=== PATIENT | male | born 1985 | race Caucasian/White ===

== ENCOUNTER 2022-07-05 22:40 | Inpatient (IN) | payer MEDICAID, SELFPAY ==
[~2022-07-05] VITALS: Ht 182.9 cm; Wt 69.8 kg
[2022-07-06] MEDS ORDERED: ONDANSETRON 4MG 2ML VIAL IV ONE (02:35)
[2022-07-06] MEDS ORDERED: NS 2,310 ML in IV 1 EA IV ONE (02:45)
[2022-07-06] MEDS: MORPHINE 4 MG/ML 1ML VIAL IV PRN ×2 (02:46→03:44)
[2022-07-06 03:13] LABS: BASO # 0.1 10^3/uL (0.0-0.2); BASO % 0.3 % (0.0-1.0); EOS # 0.1 10^3/uL (0.0-0.5); EOS % 0.7 % (0.0-3.0); HEMATOCRIT 36.5 % (42.0-52.0); LYMPH # 1.3 10^3/uL (1.5-5.0); LYMPH % 6.5 % (24.0-44.0); MEAN CORPUSCULAR HEMOGLOBIN 29.7 pg (27.0-33.0); MEAN CORPUSCULAR HGB CONC 32.9 g/dl (32.0-36.5); MEAN CORPUSCULAR VOLUME 90.3 fl (80.0-96.0); MONO # 1.2 10^3/uL (0.0-0.8); MONO % 5.9 % (2.0-8.0); NEUTROPHILS # 16.8 10^3/uL (1.5-8.5); NEUTROPHILS % 85.6 % (36.0-66.0); PLATELET COUNT, AUTOMATED 329 10^3/uL (150-450); RED BLOOD COUNT 4.04 10^6/uL (4.30-6.10); WHITE BLOOD COUNT 19.6 10^3/uL (4.0-10.0)
[2022-07-06] MEDS ORDERED: MEROPENEM INJ 1 GM in IV 1 EA IV ONE (03:15)
[2022-07-06] MEDS ORDERED: ISOVUE-370 76% 100ML VIAL As Ordered ONE (03:24)
[2022-07-06 03:43] LABS: BLOOD UREA NITROGEN 11 MG/DL (9-23); CALCIUM LEVEL 8.2 MG/DL (8.5-10.1); CARBON DIOXIDE LEVEL 29 MMOL/L (20-31); CHLORIDE LEVEL 101 MMOL/L (98-107); CREATININE FOR GFR 0.68 MG/DL (0.70-1.30); GLOMERULAR FILTRATION RATE > 60.0 (>60); GLUCOSE, FASTING 119 MG/DL (60-100); POTASSIUM SERUM 4.1 MMOL/L (3.5-5.1); SODIUM LEVEL 134 MMOL/L (136-145)
[2022-07-06] MEDS ORDERED: MORPHINE 4 MG/ML 1ML VIAL IV PRN (06:00)
[2022-07-06] MEDS ORDERED: MATE ADAPTER IV SCH (06:10)
[2022-07-06] MEDS ORDERED: NS IV SCH (06:10)
[2022-07-06] MEDS ORDERED: VANCOMYCIN HCL IV SCH (06:10)
[2022-07-06] MEDS: NS 1,000 ML IV SCH ×3 (06:10→17:56)
[2022-07-06] MEDS ORDERED: ACETAMINOPHEN TAB 650MG DOSE (2X325MG) PO PRN (06:10)
[2022-07-06] MEDS ORDERED: HOME MED LIST COMPLETE! XX SCH (06:30)
[2022-07-06] MEDS ORDERED: VANCOMYCIN HCL 750 MG, VIAL MATE ADAPTER 1 EACH in D5W 250 ML IV ONE ×2 (06:30→07:30)
[2022-07-06] MEDS ORDERED: CLINDAMYCIN 600 MG in IV 1 EA IV SCH (09:00)
[2022-07-06] MEDS: HYDROMORPHONE HCL 0.5 MG/ 0.5 ML SYRINGE IV PRN ×4 (09:14→23:51)
[2022-07-06] MEDS ORDERED: VANCOMYCIN 1000MG/20ML VIAL As Ordered ONE (11:43)
[2022-07-06] MEDS ORDERED: ACETAMINOPHEN 1000MG 100ML IV BAG As Ordered ONE (12:10)
[2022-07-06] MEDS ORDERED: propofoL 200 MG/20 ML VIAL As Ordered ONE (12:10)
[2022-07-06] MEDS ORDERED: ONDANSETRON 4MG 2ML VIAL As Ordered ONE (12:10)
[2022-07-06] MEDS ORDERED: LIDOCAINE 2% 100MG/5ML SDV (FOR ANES.) As Ordered ONE (12:10)
[2022-07-06] MEDS ORDERED: fentaNYL 100 MCG/2 ML INJECTION As Ordered ONE (12:10)
[2022-07-06] MEDS ORDERED: MIDAZOLAM INJ 2MG/2ML VIAL As Ordered ONE (12:10)
[2022-07-06] MEDS ORDERED: fentaNYL 100 MCG/2 ML INJECTION IV PRN (13:00)
[2022-07-06] MEDS ORDERED: LR 1,000 ML IV SCH (13:00)
[2022-07-06] MEDS ORDERED: ONDANSETRON 4MG 2ML VIAL IV PRN (13:00)
[2022-07-06] MEDS ORDERED: oxyCODONE 5MG TAB PO PRN (13:00)
[2022-07-06] MEDS ORDERED: HYDROMORPHONE HCL 0.5 MG/ 0.5 ML SYRINGE IV PRN (13:00)
[2022-07-06 14:45] VITALS: BP 131/76
[2022-07-06] MEDS ORDERED: PIPERACILLIN/TAZOBACTAM SOD 4.5 GM in D5W MINI-BAG PLUS 50 ML IV SCH (17:00)
[2022-07-06] MEDS: VANCOMYCIN HCL 1,000 MG, VIAL MATE ADAPTER 1 EACH in D5W 250 ML IV SCH ×2 (17:53→23:44)
[2022-07-06 18:36] LABS: HIV 1&2 SCREEN NEGATIVE (NEGATIVE)
[2022-07-06 19:49] LABS: GC DNA AMPLIFICATION NEGATIVE (NEGATIVE)
[2022-07-06 20:00] VITALS: BP 120/64
[2022-07-06] MEDS: PIPERACILLIN/TAZOBACTAM SOD 4.5 GM in D5W MINI-BAG PLUS 50 ML IV SCH (20:15)
[2022-07-06] MEDS: HEPARIN SOD (PORCINE) 5000UNITS/ML 1ML VIAL/SYRINGE SC SCH ×2 (22:00→22:32)
[2022-07-06 23:23] VITALS: BP 114/56
[2022-07-07] MEDS: PIPERACILLIN/TAZOBACTAM SOD 4.5 GM in D5W MINI-BAG PLUS 50 ML IV SCH ×3 (03:08→21:20)
[2022-07-07] MEDS: HYDROMORPHONE HCL 0.5 MG/ 0.5 ML SYRINGE IV PRN ×5 (04:21→20:51)
[2022-07-07] MEDS: HEPARIN SOD (PORCINE) 5000UNITS/ML 1ML VIAL/SYRINGE SC SCH ×3 (04:22→22:00)
[2022-07-07 04:29] VITALS: BP 109/57
[2022-07-07 07:07] LABS: BASO # 0.1 10^3/uL (0.0-0.2); BASO % 0.3 % (0.0-1.0); EOS # 0.1 10^3/uL (0.0-0.5); EOS % 0.3 % (0.0-3.0); HEMATOCRIT 34.1 % (42.0-52.0); HEMOGLOBIN 11.1 g/dl (13.5-17.5); LYMPH # 1.9 10^3/uL (1.5-5.0); LYMPH % 8.7 % (24.0-44.0); MEAN CORPUSCULAR HEMOGLOBIN 29.3 pg (27.0-33.0); MEAN CORPUSCULAR HGB CONC 32.6 g/dl (32.0-36.5); MONO # 1.3 10^3/uL (0.0-0.8); MONO % 6.2 % (2.0-8.0); NEUTROPHILS # 17.8 10^3/uL (1.5-8.5); PLATELET COUNT, AUTOMATED 344 10^3/uL (150-450); RED BLOOD COUNT 3.79 10^6/uL (4.30-6.10); WHITE BLOOD COUNT 21.5 10^3/uL (4.0-10.0)
[2022-07-07 07:29] LABS: VANCOMYCIN LEVEL TROUGH 7.6 UG/ML (10.0-20.0)
[2022-07-07 07:30] LABS: ALBUMIN 2.6 G/DL (3.2-5.2); ALKALINE PHOSPHATASE 106 U/L (46-116); ALT/SGPT 22 U/L (7.0-40); AST/SGOT 18 U/L (<34); BILIRUBIN,TOTAL < 0.2 MG/DL (0.3-1.2); BLOOD UREA NITROGEN 11 MG/DL (9-23); CALCIUM LEVEL 8.5 MG/DL (8.5-10.1); CARBON DIOXIDE LEVEL 32 MMOL/L (20-31); CHLORIDE LEVEL 104 MMOL/L (98-107); CREATININE FOR GFR 0.67 MG/DL (0.70-1.30); GLOMERULAR FILTRATION RATE > 60.0 (>60); GLUCOSE, FASTING 139 MG/DL (60-100); POTASSIUM SERUM 4.8 MMOL/L (3.5-5.1); SODIUM LEVEL 135 MMOL/L (136-145); TOTAL PROTEIN 6.5 G/DL (5.7-8.2)
[2022-07-07] MEDS: VANCOMYCIN HCL 1,000 MG, VIAL MATE ADAPTER 1 EACH in D5W 250 ML IV SCH ×3 (08:44→20:50)
[2022-07-07 10:00] VITALS: BP 107/62
[2022-07-07 14:00] VITALS: BP 115/70
[2022-07-07 20:31] VITALS: BP 121/76
[2022-07-08] MEDS: VANCOMYCIN HCL 1,000 MG, VIAL MATE ADAPTER 1 EACH in D5W 250 ML IV SCH ×3 (03:37→17:27)
[2022-07-08] MEDS: PIPERACILLIN/TAZOBACTAM SOD 4.5 GM in D5W MINI-BAG PLUS 50 ML IV SCH ×2 (04:27→11:52)
[2022-07-08] MEDS: HYDROMORPHONE HCL 0.5 MG/ 0.5 ML SYRINGE IV PRN ×5 (04:31→23:54)
[2022-07-08] MEDS: HEPARIN SOD (PORCINE) 5000UNITS/ML 1ML VIAL/SYRINGE SC SCH (06:00)
[2022-07-08 07:15] LABS: HEMATOCRIT 35.8 % (42.0-52.0); HEMOGLOBIN 11.4 g/dl (13.5-17.5); MEAN CORPUSCULAR HGB CONC 31.8 g/dl (32.0-36.5); MEAN CORPUSCULAR VOLUME 91.1 fl (80.0-96.0); PLATELET COUNT, AUTOMATED 359 10^3/uL (150-450); RED BLOOD COUNT 3.93 10^6/uL (4.30-6.10)
[2022-07-08 07:42] LABS: BLOOD UREA NITROGEN 16 MG/DL (9-23); CARBON DIOXIDE LEVEL 29 MMOL/L (20-31); CHLORIDE LEVEL 103 MMOL/L (98-107); CREATININE FOR GFR 0.71 MG/DL (0.70-1.30); GLOMERULAR FILTRATION RATE > 60.0 (>60); GLUCOSE, FASTING 110 MG/DL (60-100); POTASSIUM SERUM 4.5 MMOL/L (3.5-5.1); SODIUM LEVEL 139 MMOL/L (136-145)
[2022-07-08] MEDS ORDERED: ENOXAPARIN 40MG/0.4ML SYRINGE (J1650 PER 10MG) SC SCH (09:00)
[2022-07-08 09:17] LABS: ATYPICAL LYMPH 2 % (0-5); LYMPHOCYTES 22 % (16-44); METAMYELOCYTES 1 % (0-0); MONOCYTES 6 % (0-5); MYELOCYTES 1 % (0-0); NEUTROPHILS 63 % (28-66)
[2022-07-08 09:18] LABS: PLATELET ESTIMATE NORMAL (NORMAL)
[2022-07-08] MEDS ORDERED: VANCOMYCIN HCL 1,000 MG, VIAL MATE ADAPTER 1 EACH in D5W 250 ML IV ONE (13:00)
[2022-07-08 14:00] VITALS: BP 112/67
[2022-07-08] MEDS ORDERED: ACETAMINOPHEN 500 MG TAB PO ONE (18:20)
[2022-07-08] MEDS ORDERED: HYDROMORPHONE HCL 0.5 MG/ 0.5 ML SYRINGE IV ONE (18:20)
[2022-07-08] MEDS ORDERED: KETOROLAC 30 MG/ML 1ML VIAL IV ONE (18:20)
[2022-07-08] MEDS ORDERED: LIDOCAINE 5% OINT 30GM TUBE TOP STA (19:19)
[2022-07-08] MEDS ORDERED: HYDROmorphone HCL 2MG/ML 1ML VIAL IV ONE (19:20)
[2022-07-08 20:34] VITALS: BP 128/73
[2022-07-08] MEDS: MUPIROCIN 2% OINT 22 GM TUBE TOP SCH (21:52)
[2022-07-09] MEDS: VANCOMYCIN HCL 1,000 MG, VIAL MATE ADAPTER 1 EACH in D5W 250 ML IV SCH ×5 (00:45→23:09)
[2022-07-09 06:00] VITALS: BP 119/74
[2022-07-09 07:31] LABS: HEMATOCRIT 34.2 % (42.0-52.0); HEMOGLOBIN 11.3 g/dl (13.5-17.5); MEAN CORPUSCULAR HEMOGLOBIN 29.6 pg (27.0-33.0); MEAN CORPUSCULAR VOLUME 89.5 fl (80.0-96.0); PLATELET COUNT, AUTOMATED 361 10^3/uL (150-450); RED BLOOD COUNT 3.82 10^6/uL (4.30-6.10); WHITE BLOOD COUNT 14.7 10^3/uL (4.0-10.0)
[2022-07-09 07:52] LABS: BLOOD UREA NITROGEN 17 MG/DL (9-23); CALCIUM LEVEL 7.7 MG/DL (8.5-10.1); CARBON DIOXIDE LEVEL 30 MMOL/L (20-31); CHLORIDE LEVEL 100 MMOL/L (98-107); CREATININE FOR GFR 0.63 MG/DL (0.70-1.30); GLOMERULAR FILTRATION RATE > 60.0 (>60); GLUCOSE, FASTING 123 MG/DL (60-100); POTASSIUM SERUM 4.5 MMOL/L (3.5-5.1); SODIUM LEVEL 135 MMOL/L (136-145)
[2022-07-09 08:08] LABS: HEPATITIS B SURFACE ANTIGEN NEGATIVE (NEGATIVE)
[2022-07-09 09:28] LABS: ATYPICAL LYMPH 4 % (0-5); EOSINOPHILS 2 % (0-3); LYMPHOCYTES 5 % (16-44); METAMYELOCYTES 1 % (0-0); MONOCYTES 10 % (0-5); MYELOCYTES 1 % (0-0); NEUTROPHILS 75 % (28-66); PLATELET ESTIMATE NORMAL (NORMAL)
[2022-07-09 09:29] LABS: ANISOCYTOSIS 1+
[2022-07-09] MEDS: MUPIROCIN 2% OINT 22 GM TUBE TOP SCH ×2 (10:24→20:23)
[2022-07-09] MEDS: ENOXAPARIN 40MG/0.4ML SYRINGE (J1650 PER 10MG) SC SCH (12:16)
[2022-07-09] MEDS: HYDROMORPHONE HCL 0.5 MG/ 0.5 ML SYRINGE IV PRN ×2 (12:17→20:22)
[2022-07-09 14:00] VITALS: BP 120/74
[2022-07-09 21:40] VITALS: BP 117/76
[2022-07-10 05:09] LABS: HEPATITIS B CORE ANTIBODY IGG Negative (Negative)
[2022-07-10] MEDS: VANCOMYCIN HCL 1,000 MG, VIAL MATE ADAPTER 1 EACH in D5W 250 ML IV SCH ×3 (05:14→18:29)
[2022-07-10 06:00] VITALS: BP 111/67
[2022-07-10 06:11] LABS: HEMATOCRIT 36.4 % (42.0-52.0); MEAN CORPUSCULAR HEMOGLOBIN 29.4 pg (27.0-33.0); MEAN CORPUSCULAR VOLUME 89.2 fl (80.0-96.0); PLATELET COUNT, AUTOMATED 376 10^3/uL (150-450); RED BLOOD COUNT 4.08 10^6/uL (4.30-6.10)
[2022-07-10] MEDS: HYDROMORPHONE HCL 0.5 MG/ 0.5 ML SYRINGE IV PRN ×2 (06:25→11:40)
[2022-07-10 06:34] LABS: BLOOD UREA NITROGEN 13 MG/DL (9-23); CALCIUM LEVEL 8.4 MG/DL (8.5-10.1); CARBON DIOXIDE LEVEL 30 MMOL/L (20-31); CHLORIDE LEVEL 99 MMOL/L (98-107); CREATININE FOR GFR 0.68 MG/DL (0.70-1.30); GLOMERULAR FILTRATION RATE > 60.0 (>60); GLUCOSE, FASTING 137 MG/DL (60-100); POTASSIUM SERUM 4.6 MMOL/L (3.5-5.1); SODIUM LEVEL 135 MMOL/L (136-145)
[2022-07-10 07:33] LABS: ATYPICAL LYMPH 2 % (0-5); EOSINOPHILS 4 % (0-3); LYMPHOCYTES 12 % (16-44); METAMYELOCYTES 2 % (0-0); MONOCYTES 9 % (0-5); MYELOCYTES 4 % (0-0); NEUTROPHILS 64 % (28-66); PLATELET CLUMPS SMALL AMT; PLATELET ESTIMATE NORMAL (NORMAL)
[2022-07-10 07:35] LABS: POLYCHROMASIA 1+
[2022-07-10] MEDS: MUPIROCIN 2% OINT 22 GM TUBE TOP SCH ×2 (12:33→19:59)
[2022-07-10] MEDS: ENOXAPARIN 40MG/0.4ML SYRINGE (J1650 PER 10MG) SC SCH (12:34)
[2022-07-10 14:00] VITALS: BP 110/84
[2022-07-10] MEDS ORDERED: traZODone 50 MG TAB PO PRN (15:20)
[2022-07-10] MEDS ORDERED: SENOKOT S TAB PO PRN (15:20)
[2022-07-10] MEDS ORDERED: HYDROMORPHONE HCL 0.5 MG/ 0.5 ML SYRINGE IV PRN (15:20)
[2022-07-10] MEDS ORDERED: MIRALAX *UNIT DOSE* 17GM PACKET PO PRN (15:20)
[2022-07-10] MEDS ORDERED: NALOXONE INJ 0.4MG/1ML VIAL IV PRN (15:20)
[2022-07-10] MEDS ORDERED: MOM 30ML SUSPENSION UDC PO PRN (15:20)
[2022-07-10] MEDS: IBUPROFEN 400MG TAB PO SCH (18:29)
[2022-07-10] MEDS: PERCOCET 5MG/325MG TAB PO PRN (19:59)
[2022-07-10 20:00] VITALS: BP 126/66
[2022-07-11] MEDS: VANCOMYCIN HCL 1,000 MG, VIAL MATE ADAPTER 1 EACH in D5W 250 ML IV SCH ×4 (00:08→18:00)
[2022-07-11 06:00] VITALS: BP 112/64
[2022-07-11] MEDS: PERCOCET 5MG/325MG TAB PO PRN (06:28)
[2022-07-11 06:38] LABS: HEMATOCRIT 36.6 % (42.0-52.0); HEMOGLOBIN 11.9 g/dl (13.5-17.5); MEAN CORPUSCULAR HEMOGLOBIN 29.2 pg (27.0-33.0); MEAN CORPUSCULAR HGB CONC 32.5 g/dl (32.0-36.5); MEAN CORPUSCULAR VOLUME 89.7 fl (80.0-96.0); PLATELET COUNT, AUTOMATED 384 10^3/uL (150-450); RED BLOOD COUNT 4.08 10^6/uL (4.30-6.10)
[2022-07-11 07:07] LABS: BLOOD UREA NITROGEN 19 MG/DL (9-23); CALCIUM LEVEL 8.5 MG/DL (8.5-10.1); CARBON DIOXIDE LEVEL 29 MMOL/L (20-31); CHLORIDE LEVEL 100 MMOL/L (98-107); CREATININE FOR GFR 0.68 MG/DL (0.70-1.30); GLOMERULAR FILTRATION RATE > 60.0 (>60); GLUCOSE, FASTING 128 MG/DL (60-100); POTASSIUM SERUM 4.5 MMOL/L (3.5-5.1); SODIUM LEVEL 135 MMOL/L (136-145)
[2022-07-11 07:21] LABS: ATYPICAL LYMPH 2 % (0-5); EOSINOPHILS 9 % (0-3); LYMPHOCYTES 18 % (16-44); METAMYELOCYTES 2 % (0-0); MONOCYTES 5 % (0-5); MYELOCYTES 2 % (0-0); NEUTROPHILS 58 % (28-66); PLASMA CELL 2 % (0-0)
[2022-07-11 07:23] LABS: PLATELET ESTIMATE NORMAL (NORMAL)
[2022-07-11] MEDS ORDERED: HYDROMORPHONE HCL 0.5 MG/ 0.5 ML SYRINGE IV PRN (09:05)
[2022-07-11] MEDS: IBUPROFEN 400MG TAB PO SCH ×3 (09:25→18:00)
[2022-07-11] MEDS: MUPIROCIN 2% OINT 22 GM TUBE TOP SCH ×2 (09:25→21:43)
[2022-07-11] MEDS: ENOXAPARIN 40MG/0.4ML SYRINGE (J1650 PER 10MG) SC SCH (12:04)
[2022-07-11] MEDS: HYDROMORPHONE HCL 0.5 MG/ 0.5 ML SYRINGE IV PRN ×2 (12:05→21:43)
[2022-07-11 14:00] VITALS: BP 112/67
[2022-07-11 21:20] VITALS: BP 128/78
[2022-07-11] MEDS: traZODone 100 MG TAB PO PRN (21:42)
[2022-07-12] VITALS (10 sets, daily range): BP systolic 108–136; BP diastolic 63–86
[2022-07-12 00:08] LABS: HSV TYPE II IgG SPECIFIC <0.91 index (0.00-0.90); HSV-1 DNA Negative (Negative); HSV-2 DNA Negative (Negative)
[2022-07-12] MEDS: PERCOCET 5MG/325MG TAB PO PRN ×3 (00:19→21:27)
[2022-07-12] MEDS: VANCOMYCIN HCL 1,000 MG, VIAL MATE ADAPTER 1 EACH in D5W 250 ML IV SCH ×5 (00:19→23:53)
[2022-07-12] MEDS ORDERED: D5W/0.45% SODIUM CHLORIDE 1,000 ML IV SCH (05:00)
[2022-07-12 06:39] LABS: MEAN CORPUSCULAR HEMOGLOBIN 29.2 pg (27.0-33.0); MEAN CORPUSCULAR HGB CONC 32.4 g/dl (32.0-36.5); MEAN CORPUSCULAR VOLUME 90.2 fl (80.0-96.0); PLATELET COUNT, AUTOMATED 384 10^3/uL (150-450); RED BLOOD COUNT 3.77 10^6/uL (4.30-6.10); WHITE BLOOD COUNT 8.8 10^3/uL (4.0-10.0)
[2022-07-12 07:18] LABS: BLOOD UREA NITROGEN 20 MG/DL (9-23); CALCIUM LEVEL 8.5 MG/DL (8.5-10.1); CARBON DIOXIDE LEVEL 28 MMOL/L (20-31); CHLORIDE LEVEL 104 MMOL/L (98-107); CREATININE FOR GFR 0.63 MG/DL (0.70-1.30); GLOMERULAR FILTRATION RATE > 60.0 (>60); GLUCOSE, FASTING 95 MG/DL (60-100); POTASSIUM SERUM 4.7 MMOL/L (3.5-5.1); SODIUM LEVEL 137 MMOL/L (136-145)
[2022-07-12] MEDS ORDERED: BUPIVACAINE HCL 0.25% 30ML VIAL As Ordered ONE (07:24)
[2022-07-12] MEDS ORDERED: GENTAMICIN SULF 80MG/2ML VIAL As Ordered ONE (07:24)
[2022-07-12] MEDS ORDERED: BUPIVACAINE LIPOSOME/PF 1.3% 20ML VIAL (13.3MG/ML)(EXPAREL) As Ordered ONE (07:25)
[2022-07-12 07:32] LABS: ANISOCYTOSIS 1+; ATYPICAL LYMPH 1 % (0-5); EOSINOPHILS 6 % (0-3); LYMPHOCYTES 27 % (16-44); MONOCYTES 3 % (0-5); MYELOCYTES 1 % (0-0); NEUTROPHILS 61 % (28-66); PLATELET ESTIMATE NORMAL (NORMAL); POLYCHROMASIA 1+
[2022-07-12] MEDS ORDERED: ONDANSETRON 4MG 2ML VIAL As Ordered ONE (07:58)
[2022-07-12] MEDS ORDERED: LIDOCAINE 2% 100MG/5ML SDV (FOR ANES.) As Ordered ONE (07:58)
[2022-07-12] MEDS ORDERED: propofoL 200 MG/20 ML VIAL As Ordered ONE ×2 (07:58→08:16)
[2022-07-12] MEDS ORDERED: fentaNYL 100 MCG/2 ML INJECTION As Ordered ONE (07:58)
[2022-07-12] MEDS ORDERED: MIDAZOLAM INJ 2MG/2ML VIAL As Ordered ONE (07:58)
[2022-07-12] MEDS ORDERED: METOCLOPRAMIDE INJ 10MG/2ML VIAL As Ordered ONE (07:58)
[2022-07-12] MEDS ORDERED: ACETAMINOPHEN 1000MG 100ML IV BAG As Ordered ONE (08:00)
[2022-07-12] MEDS ORDERED: HYDROmorphone HCL 2MG/ML 1ML VIAL As Ordered ONE (08:06)
[2022-07-12] MEDS ORDERED: DESFLURANE 240 ML INHALANT As Ordered ONE (08:17)
[2022-07-12] MEDS ORDERED: oxyCODONE 5MG TAB PO PRN (08:40)
[2022-07-12] MEDS ORDERED: ONDANSETRON 4MG 2ML VIAL IV PRN (08:40)
[2022-07-12] MEDS ORDERED: LR 1,000 ML IV SCH (08:40)
[2022-07-12] MEDS: fentaNYL 100 MCG/2 ML INJECTION IV PRN ×2 (08:48→09:13)
[2022-07-12] MEDS: IBUPROFEN 400MG TAB PO SCH ×3 (10:45→17:51)
[2022-07-12] MEDS: ENOXAPARIN 40MG/0.4ML SYRINGE (J1650 PER 10MG) SC SCH (12:36)
[2022-07-12] MEDS: HYDROMORPHONE HCL 0.5 MG/ 0.5 ML SYRINGE IV PRN ×2 (14:14→20:13)
[2022-07-12] MEDS ORDERED: NICOTINE 21MG/24HR 1 EA TRANSDERMAL TD ONE (15:50)
[2022-07-12] MEDS: traZODone 100 MG TAB PO PRN (21:27)
[2022-07-13] VITALS (7 sets, daily range): BP systolic 99–128; BP diastolic 8–80
[2022-07-13] MEDS: VANCOMYCIN HCL 1,000 MG, VIAL MATE ADAPTER 1 EACH in D5W 250 ML IV SCH ×4 (05:49→23:51)
[2022-07-13] MEDS: HYDROMORPHONE HCL 0.5 MG/ 0.5 ML SYRINGE IV PRN ×3 (05:50→19:53)
[2022-07-13 06:33] LABS: BASO # 0.1 10^3/uL (0.0-0.2); BASO % 0.4 % (0.0-1.0); EOS # 0.3 10^3/uL (0.0-0.5); EOS % 1.9 % (0.0-3.0); HEMATOCRIT 31.8 % (42.0-52.0); HEMOGLOBIN 10.5 g/dl (13.5-17.5); LYMPH # 2.8 10^3/uL (1.5-5.0); LYMPH % 20.6 % (24.0-44.0); MEAN CORPUSCULAR HEMOGLOBIN 29.8 pg (27.0-33.0); MEAN CORPUSCULAR VOLUME 90.3 fl (80.0-96.0); MONO # 0.7 10^3/uL (0.0-0.8); MONO % 5.4 % (2.0-8.0); NEUTROPHILS # 9.6 10^3/uL (1.5-8.5); NEUTROPHILS % 69.7 % (36.0-66.0); PLATELET COUNT, AUTOMATED 392 10^3/uL (150-450); RED BLOOD COUNT 3.52 10^6/uL (4.30-6.10); WHITE BLOOD COUNT 13.7 10^3/uL (4.0-10.0)
[2022-07-13 07:02] LABS: BLOOD UREA NITROGEN 14 MG/DL (9-23); CALCIUM LEVEL 8.1 MG/DL (8.5-10.1); CARBON DIOXIDE LEVEL 28 MMOL/L (20-31); CHLORIDE LEVEL 102 MMOL/L (98-107); CREATININE FOR GFR 0.61 MG/DL (0.70-1.30); GLOMERULAR FILTRATION RATE > 60.0 (>60); GLUCOSE, FASTING 152 MG/DL (60-100); POTASSIUM SERUM 4.1 MMOL/L (3.5-5.1); SODIUM LEVEL 137 MMOL/L (136-145)
[2022-07-13] MEDS: NICOTINE 21MG/24HR 1 EA TRANSDERMAL TD SCH (08:57)
[2022-07-13] MEDS: IBUPROFEN 400MG TAB PO SCH ×3 (08:58→18:04)
[2022-07-13] MEDS: PERCOCET 5MG/325MG TAB PO PRN ×3 (08:59→22:08)
[2022-07-13] MEDS: ENOXAPARIN 40MG/0.4ML SYRINGE (J1650 PER 10MG) SC SCH (12:25)
[2022-07-13] MEDS ORDERED: CALCIUM CARBONATE 500 MG CHEW U/D PO PRN (20:00)
[2022-07-13] MEDS: traZODone 100 MG TAB PO PRN (22:08)
[2022-07-14 05:17] VITALS: BP 130/90
[2022-07-14] MEDS: VANCOMYCIN HCL 1,000 MG, VIAL MATE ADAPTER 1 EACH in D5W 250 ML IV SCH ×3 (05:53→18:59)
[2022-07-14 07:22] LABS: HEMATOCRIT 33.1 % (42.0-52.0); HEMOGLOBIN 10.5 g/dl (13.5-17.5); MEAN CORPUSCULAR HEMOGLOBIN 28.8 pg (27.0-33.0); MEAN CORPUSCULAR HGB CONC 31.7 g/dl (32.0-36.5); MEAN CORPUSCULAR VOLUME 90.9 fl (80.0-96.0); PLATELET COUNT, AUTOMATED 383 10^3/uL (150-450); RED BLOOD COUNT 3.64 10^6/uL (4.30-6.10); WHITE BLOOD COUNT 8.5 10^3/uL (4.0-10.0)
[2022-07-14 07:39] LABS: BLOOD UREA NITROGEN 14 MG/DL (9-23); CARBON DIOXIDE LEVEL 32 MMOL/L (20-31); CHLORIDE LEVEL 104 MMOL/L (98-107); CREATININE FOR GFR 0.73 MG/DL (0.70-1.30); GLOMERULAR FILTRATION RATE > 60.0 (>60); GLUCOSE, FASTING 99 MG/DL (60-100); POTASSIUM SERUM 4.3 MMOL/L (3.5-5.1); SODIUM LEVEL 139 MMOL/L (136-145)
[2022-07-14] MEDS: HYDROMORPHONE HCL 0.5 MG/ 0.5 ML SYRINGE IV PRN (10:07)
[2022-07-14] MEDS: IBUPROFEN 400MG TAB PO SCH ×3 (10:08→17:22)
[2022-07-14] MEDS: NICOTINE 21MG/24HR 1 EA TRANSDERMAL TD SCH (10:09)
[2022-07-14] MEDS: PERCOCET 5MG/325MG TAB PO PRN ×2 (11:58→17:23)
[2022-07-14] MEDS: ENOXAPARIN 40MG/0.4ML SYRINGE (J1650 PER 10MG) SC SCH (11:58)
[2022-07-14 20:38] VITALS: BP 124/80
[2022-07-15] MEDS: PERCOCET 5MG/325MG TAB PO PRN ×4 (01:10→21:19)
[2022-07-15] MEDS: traZODone 100 MG TAB PO PRN ×2 (01:10→21:19)
[2022-07-15] MEDS: VANCOMYCIN HCL 1,000 MG, VIAL MATE ADAPTER 1 EACH in D5W 250 ML IV SCH ×2 (04:41→12:48)
[2022-07-15 06:48] VITALS: BP 115/78
[2022-07-15 06:59] LABS: HEMATOCRIT 34.3 % (42.0-52.0); HEMOGLOBIN 11.1 g/dl (13.5-17.5); MEAN CORPUSCULAR HEMOGLOBIN 29.3 pg (27.0-33.0); MEAN CORPUSCULAR HGB CONC 32.4 g/dl (32.0-36.5); MEAN CORPUSCULAR VOLUME 90.5 fl (80.0-96.0); PLATELET COUNT, AUTOMATED 392 10^3/uL (150-450); RED BLOOD COUNT 3.79 10^6/uL (4.30-6.10); WHITE BLOOD COUNT 8.7 10^3/uL (4.0-10.0)
[2022-07-15 07:29] LABS: BLOOD UREA NITROGEN 16 MG/DL (9-23); CALCIUM LEVEL 8.7 MG/DL (8.5-10.1); CARBON DIOXIDE LEVEL 31 MMOL/L (20-31); CHLORIDE LEVEL 101 MMOL/L (98-107); CREATININE FOR GFR 0.67 MG/DL (0.70-1.30); GLOMERULAR FILTRATION RATE > 60.0 (>60); GLUCOSE, FASTING 99 MG/DL (60-100); POTASSIUM SERUM 4.8 MMOL/L (3.5-5.1); SODIUM LEVEL 135 MMOL/L (136-145)
[2022-07-15] MEDS: NICOTINE 21MG/24HR 1 EA TRANSDERMAL TD SCH (08:19)
[2022-07-15] MEDS: IBUPROFEN 400MG TAB PO SCH ×3 (08:22→17:32)
[2022-07-15] MEDS: ENOXAPARIN 40MG/0.4ML SYRINGE (J1650 PER 10MG) SC SCH (12:48)
[2022-07-15 14:00] VITALS: BP 123/81
[2022-07-15] MEDS: VANCOMYCIN HCL 750 MG, VIAL MATE ADAPTER 1 EACH in D5W 250 ML IV SCH (17:32)
[2022-07-15] MEDS ORDERED: MORPHINE 4 MG/ML 1ML VIAL IV ONE (19:30)
[2022-07-15 22:15] VITALS: BP 107/69
[2022-07-16] MEDS: VANCOMYCIN HCL 750 MG, VIAL MATE ADAPTER 1 EACH in D5W 250 ML IV SCH ×3 (00:25→12:41)
[2022-07-16] MEDS ORDERED: ONDANSETRON 4MG 2ML VIAL IV PRN (03:05)
[2022-07-16 06:51] LABS: HEMATOCRIT 38.1 % (42.0-52.0); HEMOGLOBIN 12.4 g/dl (13.5-17.5); MEAN CORPUSCULAR HEMOGLOBIN 29.1 pg (27.0-33.0); MEAN CORPUSCULAR HGB CONC 32.5 g/dl (32.0-36.5); MEAN CORPUSCULAR VOLUME 89.4 fl (80.0-96.0); PLATELET COUNT, AUTOMATED 410 10^3/uL (150-450); RED BLOOD COUNT 4.26 10^6/uL (4.30-6.10); WHITE BLOOD COUNT 17.8 10^3/uL (4.0-10.0)
[2022-07-16 06:52] VITALS: BP 125/77
[2022-07-16 07:19] LABS: BLOOD UREA NITROGEN 20 MG/DL (9-23); CALCIUM LEVEL 8.7 MG/DL (8.5-10.1); CARBON DIOXIDE LEVEL 30 MMOL/L (20-31); CHLORIDE LEVEL 97 MMOL/L (98-107); CREATININE FOR GFR 0.66 MG/DL (0.70-1.30); GLOMERULAR FILTRATION RATE > 60.0 (>60); GLUCOSE, FASTING 121 MG/DL (60-100); POTASSIUM SERUM 5.1 MMOL/L (3.5-5.1); SODIUM LEVEL 133 MMOL/L (136-145)
[2022-07-16] MEDS: IBUPROFEN 400MG TAB PO SCH ×3 (08:00→16:56)
[2022-07-16] MEDS: NICOTINE 21MG/24HR 1 EA TRANSDERMAL TD SCH (09:00)
[2022-07-16] MEDS: ENOXAPARIN 40MG/0.4ML SYRINGE (J1650 PER 10MG) SC SCH (12:00)
[2022-07-16 13:40] VITALS: BP 102/68
[2022-07-16] MEDS: NS 1,000 ML IV SCH (14:00)
[2022-07-16 14:19] LABS: BASO % 0.2 % (0.0-1.0); EOS # 0.2 10^3/uL (0.0-0.5); HEMOGLOBIN 12.8 g/dl (13.5-17.5); LYMPH # 1.1 10^3/uL (1.5-5.0); LYMPH % 6.6 % (24.0-44.0); MEAN CORPUSCULAR HEMOGLOBIN 29.3 pg (27.0-33.0); MEAN CORPUSCULAR HGB CONC 32.8 g/dl (32.0-36.5); MEAN CORPUSCULAR VOLUME 89.2 fl (80.0-96.0); MONO # 0.5 10^3/uL (0.0-0.8); NEUTROPHILS # 14.5 10^3/uL (1.5-8.5); NEUTROPHILS % 88.3 % (36.0-66.0); PLATELET COUNT, AUTOMATED 413 10^3/uL (150-450); RED BLOOD COUNT 4.37 10^6/uL (4.30-6.10); WHITE BLOOD COUNT 16.5 10^3/uL (4.0-10.0)
[2022-07-16] MEDS: VANCOMYCIN HCL 1,000 MG, VIAL MATE ADAPTER 1 EACH in D5W 250 ML IV SCH (18:08)
[2022-07-16 20:11] VITALS: BP 103/68
[2022-07-17] MEDS: VANCOMYCIN HCL 1,000 MG, VIAL MATE ADAPTER 1 EACH in D5W 250 ML IV SCH ×4 (00:14→17:11)
[2022-07-17] MEDS: NS 1,000 ML IV SCH (04:11)
[2022-07-17] MEDS: PERCOCET 5MG/325MG TAB PO PRN ×3 (05:43→19:58)
[2022-07-17 05:46] VITALS: BP 104/68
[2022-07-17 06:56] LABS: HEMATOCRIT 36.9 % (42.0-52.0); HEMOGLOBIN 12.1 g/dl (13.5-17.5); MEAN CORPUSCULAR HEMOGLOBIN 29.5 pg (27.0-33.0); MEAN CORPUSCULAR HGB CONC 32.8 g/dl (32.0-36.5); PLATELET COUNT, AUTOMATED 355 10^3/uL (150-450); WHITE BLOOD COUNT 9.3 10^3/uL (4.0-10.0)
[2022-07-17 07:08] LABS: BLOOD UREA NITROGEN 16 MG/DL (9-23); CALCIUM LEVEL 8.2 MG/DL (8.5-10.1); CARBON DIOXIDE LEVEL 27 MMOL/L (20-31); CHLORIDE LEVEL 99 MMOL/L (98-107); CREATININE FOR GFR 0.65 MG/DL (0.70-1.30); GLOMERULAR FILTRATION RATE > 60.0 (>60); GLUCOSE, FASTING 132 MG/DL (60-100); POTASSIUM SERUM 4.2 MMOL/L (3.5-5.1); SODIUM LEVEL 134 MMOL/L (136-145)
[2022-07-17] MEDS: IBUPROFEN 400MG TAB PO SCH ×3 (08:13→17:10)
[2022-07-17] MEDS: NICOTINE 21MG/24HR 1 EA TRANSDERMAL TD SCH (08:14)
[2022-07-17] MEDS: ENOXAPARIN 40MG/0.4ML SYRINGE (J1650 PER 10MG) SC SCH (12:29)
[2022-07-17 14:00] VITALS: BP 128/68
[2022-07-17 19:53] VITALS: BP 136/84
[2022-07-18] MEDS: VANCOMYCIN HCL 1,000 MG, VIAL MATE ADAPTER 1 EACH in D5W 250 ML IV SCH ×2 (00:37→05:20)
[2022-07-18] MEDS: traZODone 100 MG TAB PO PRN (00:42)
[2022-07-18] MEDS: PERCOCET 5MG/325MG TAB PO PRN ×3 (05:23→18:12)
[2022-07-18 05:55] VITALS: BP 109/69
[2022-07-18 06:07] LABS: HEMATOCRIT 36.2 % (42.0-52.0); HEMOGLOBIN 11.9 g/dl (13.5-17.5); MEAN CORPUSCULAR HEMOGLOBIN 29.1 pg (27.0-33.0); MEAN CORPUSCULAR HGB CONC 32.9 g/dl (32.0-36.5); MEAN CORPUSCULAR VOLUME 88.5 fl (80.0-96.0); PLATELET COUNT, AUTOMATED 349 10^3/uL (150-450); RED BLOOD COUNT 4.09 10^6/uL (4.30-6.10); WHITE BLOOD COUNT 9.6 10^3/uL (4.0-10.0)
[2022-07-18 06:33] LABS: BLOOD UREA NITROGEN 19 MG/DL (9-23); CALCIUM LEVEL 8.3 MG/DL (8.5-10.1); CARBON DIOXIDE LEVEL 28 MMOL/L (20-31); CHLORIDE LEVEL 101 MMOL/L (98-107); CREATININE FOR GFR 0.59 MG/DL (0.70-1.30); GLOMERULAR FILTRATION RATE > 60.0 (>60); GLUCOSE, FASTING 122 MG/DL (60-100); SODIUM LEVEL 135 MMOL/L (136-145)
[2022-07-18] MEDS: IBUPROFEN 400MG TAB PO SCH ×3 (07:31→17:18)
[2022-07-18] MEDS: NICOTINE 21MG/24HR 1 EA TRANSDERMAL TD SCH (07:32)
[2022-07-18] MEDS: ENOXAPARIN 40MG/0.4ML SYRINGE (J1650 PER 10MG) SC SCH (12:03)
[2022-07-18] MEDS: VANCOMYCIN HCL 750 MG, VIAL MATE ADAPTER 1 EACH in D5W 250 ML IV SCH ×2 (14:26→21:45)
[2022-07-18 14:30] VITALS: BP 118/72
[2022-07-18] MEDS: VANCOMYCIN HCL 500 MG in D5W MINI-BAG PLUS 100 ML IV SCH ×2 (17:19→23:36)
[2022-07-18 19:54] VITALS: BP 107/67
[2022-07-19 04:49] VITALS: BP 111/68
[2022-07-19] MEDS: VANCOMYCIN HCL 750 MG, VIAL MATE ADAPTER 1 EACH in D5W 250 ML IV SCH (05:52)
[2022-07-19 06:09] LABS: HEMATOCRIT 35.2 % (42.0-52.0); HEMOGLOBIN 11.5 g/dl (13.5-17.5); MEAN CORPUSCULAR HEMOGLOBIN 29.4 pg (27.0-33.0); MEAN CORPUSCULAR HGB CONC 32.7 g/dl (32.0-36.5); PLATELET COUNT, AUTOMATED 342 10^3/uL (150-450); RED BLOOD COUNT 3.91 10^6/uL (4.30-6.10); WHITE BLOOD COUNT 5.7 10^3/uL (4.0-10.0)
[2022-07-19 06:27] LABS: BLOOD UREA NITROGEN 15 MG/DL (9-23); CALCIUM LEVEL 8.4 MG/DL (8.5-10.1); CARBON DIOXIDE LEVEL 30 MMOL/L (20-31); CHLORIDE LEVEL 101 MMOL/L (98-107); CREATININE FOR GFR 0.65 MG/DL (0.70-1.30); GLOMERULAR FILTRATION RATE > 60.0 (>60); GLUCOSE, FASTING 90 MG/DL (60-100); POTASSIUM SERUM 4.2 MMOL/L (3.5-5.1); SODIUM LEVEL 136 MMOL/L (136-145)
[2022-07-19] MEDS ORDERED: PANTOPRAZOLE 40MG VIAL IV SCH (08:00)
[2022-07-19] MEDS: NICOTINE 21MG/24HR 1 EA TRANSDERMAL TD SCH (08:55)
[2022-07-19] MEDS: SUCRALFATE SUSP 1GM/10ML UD PO SCH ×3 (08:55→17:03)
[2022-07-19] MEDS: PERCOCET 5MG/325MG TAB PO PRN ×2 (08:55→17:04)
[2022-07-19] MEDS: ACETAMINOPHEN 500 MG TAB PO SCH ×2 (08:56→20:27)
[2022-07-19] MEDS: PANTOPRAZOLE 40MG TAB (PROTONIX) PO SCH ×2 (08:56→20:27)
[2022-07-19] MEDS ORDERED: PANTOPRAZOLE 40MG VIAL IV ONE (09:00)
[2022-07-19] MEDS: VANCOMYCIN HCL 500 MG in D5W MINI-BAG PLUS 100 ML IV SCH (09:38)
[2022-07-19] MEDS: ENOXAPARIN 40MG/0.4ML SYRINGE (J1650 PER 10MG) SC SCH (13:04)
[2022-07-19 14:00] VITALS: BP 108/67
[2022-07-19 19:30] VITALS: BP 128/80
[2022-07-19] MEDS: CLINDAMYCIN 150MG CAPSULE PO SCH (20:27)
[2022-07-20] MEDS: SUCRALFATE SUSP 1GM/10ML UD PO SCH ×4 (00:17→17:27)
[2022-07-20 05:28] VITALS: BP 106/71
[2022-07-20] MEDS: PERCOCET 5MG/325MG TAB PO PRN ×2 (05:32→17:30)
[2022-07-20 05:44] LABS: HEMATOCRIT 35.4 % (42.0-52.0); HEMOGLOBIN 11.6 g/dl (13.5-17.5); MEAN CORPUSCULAR HGB CONC 32.8 g/dl (32.0-36.5); MEAN CORPUSCULAR VOLUME 88.5 fl (80.0-96.0); PLATELET COUNT, AUTOMATED 353 10^3/uL (150-450); WHITE BLOOD COUNT 5.2 10^3/uL (4.0-10.0)
[2022-07-20 06:18] LABS: BLOOD UREA NITROGEN 16 MG/DL (9-23); CALCIUM LEVEL 8.7 MG/DL (8.5-10.1); CARBON DIOXIDE LEVEL 29 MMOL/L (20-31); CHLORIDE LEVEL 103 MMOL/L (98-107); CREATININE FOR GFR 0.65 MG/DL (0.70-1.30); GLOMERULAR FILTRATION RATE > 60.0 (>60); GLUCOSE, FASTING 88 MG/DL (60-100); POTASSIUM SERUM 4.5 MMOL/L (3.5-5.1); SODIUM LEVEL 137 MMOL/L (136-145)
[2022-07-20] MEDS: PANTOPRAZOLE 40MG TAB (PROTONIX) PO SCH ×2 (08:26→20:10)
[2022-07-20] MEDS: ACETAMINOPHEN 500 MG TAB PO SCH ×2 (08:27→20:10)
[2022-07-20] MEDS: CLINDAMYCIN 150MG CAPSULE PO SCH ×3 (08:27→20:10)
[2022-07-20] MEDS: NICOTINE 21MG/24HR 1 EA TRANSDERMAL TD SCH (08:27)
[2022-07-20] MEDS: ENOXAPARIN 40MG/0.4ML SYRINGE (J1650 PER 10MG) SC SCH (12:00)
[2022-07-20] MEDS: LACTOBACILLUS ACIDOPHILUS CAP (BACID) PO SCH ×2 (12:52→17:27)
[2022-07-20 14:00] VITALS: BP 139/77
[2022-07-20] MEDS ORDERED: PERCOCET PO (15:08)
[2022-07-20] MEDS ORDERED: SUCR1TA PO (15:08)
[2022-07-20] MEDS ORDERED: CLEO150C PO (15:08)
[2022-07-20] MEDS ORDERED: RISATAB3 PO (15:08)
[2022-07-20] MEDS ORDERED: FAMO20TA PO (15:08)
[2022-07-20] MEDS ORDERED: KETOROLAC TROMETHAMINE 10 MG TAB PO ONE (19:10)
[2022-07-20 19:33] VITALS: BP 134/77
[2022-07-21] MEDS: SUCRALFATE SUSP 1GM/10ML UD PO SCH ×3 (00:19→12:00)
[2022-07-21 05:25] VITALS: BP 133/90
[2022-07-21] MEDS: PERCOCET 5MG/325MG TAB PO PRN (06:07)
[2022-07-21] MEDS: NICOTINE 21MG/24HR 1 EA TRANSDERMAL TD SCH (08:47)
[2022-07-21] MEDS: CLINDAMYCIN 150MG CAPSULE PO SCH (08:47)
[2022-07-21] MEDS: ACETAMINOPHEN 500 MG TAB PO SCH (08:48)
[2022-07-21] MEDS: PANTOPRAZOLE 40MG TAB (PROTONIX) PO SCH (08:48)
[2022-07-21] MEDS: LACTOBACILLUS ACIDOPHILUS CAP (BACID) PO SCH (08:48)
[2022-07-21] MEDS: ENOXAPARIN 40MG/0.4ML SYRINGE (J1650 PER 10MG) SC SCH (12:00)
[2022-07-21] MEDS ORDERED: KETO10TAB PO (13:27)
== END 2022-07-21 14:50 | disposition home or self-care (01) | DRG 312 ==
LOC: M ED 22:40 → M ED INP 07-06 06:06 → EEVIPCON 07-06 06:06 → ENRESERV 07-06 09:53 → M ICU 07-06 14:22 → M MSPAV 07-06 23:19 → M MS5PR 07-12 14:25
PROVIDERS: ADMIT Internal Medicine; ATTEND Internal Medicine Nephrology
PROC: 0JDN0ZZ Extraction of Right Lower Leg Subcutaneous Tissue and Fascia, Open Approach (ICD-10-PCS; principal; 2022-07-06 10:30)
PROC: 0KBS0ZZ Excision of Right Lower Leg Muscle, Open Approach (ICD-10-PCS; 2022-07-12)
PROC: 0HR Skin and Breast, Replacement (ICD-10-PCS; 2022-07-12)
DX: M72.6 Necrotizing fasciitis (principal); A41.9 Sepsis, unspecified organism; K29.00 Acute gastritis without bleeding; Z88.2 Allergy status to sulfonamides; Z79.899 Other long term (current) drug therapy; Z88.6 Allergy status to analgesic agent; F17.210 Nicotine dependence, cigarettes, uncomplicated; F12.90 Cannabis use, unspecified, uncomplicated; F41.9 Anxiety disorder, unspecified; B95.5 Unspecified streptococcus as the cause of diseases classified elsewhere; B95.62 Methicillin resistant Staphylococcus aureus infection as the cause of diseases classified elsewhere; G47.00 Insomnia, unspecified; M54.59 Other low back pain